=== PATIENT | female | born 1985 | race Caucasian/White ===

== ENCOUNTER → 2018-11-07 | Outpatient (CLI) | payer OTHER ==
[~2018-11-07] MED LIST: FERROUS SULFATE; FLOM0.4C39 PO; IBUP600T; IBUP800T; IBUP80TA PO; IRON28TA; LEVA750T7 PO; MACR100C43 PO; MOM30SS PO; ZOFR4TAB16 PO; prenatal vit
--- NOTE | 2018-11-07 13:10 | REP ---
KUB ABDOMEN AND PELVIS: KUB film of abdomen and pelvis demonstrates no evidence of bowel obstruction. No dilated small bowel loops are seen. No abnormal calcifications are seen radiographically. The visualized osseous structures are unremarkable. IMPRESSION: Negative exam. Electronically Signed by Frank Arguello MD 11/07/2018 04:50 P
[2018-11-07 20:24] LABS: BASO # 0.1 10^3/uL (0.0-0.2); BASO % 0.4 % (0.0-1.0); EOS % 0.1 % (0.0-3.0); HEMATOCRIT 47.1 % (36.0-47.0); HEMOGLOBIN 15.3 g/dl (12.0-15.5); LYMPH # 0.6 10^3/uL (1.5-5.0); LYMPH % 4.5 % (24.0-44.0); MEAN CORPUSCULAR HEMOGLOBIN 32.6 pg (27.0-33.0); MEAN CORPUSCULAR HGB CONC 32.5 g/dl (32.0-36.5); MEAN CORPUSCULAR VOLUME 100.2 fl (80.0-96.0); MONO # 0.9 10^3/uL (0.0-0.8); MONO % 6.6 % (0.0-5.0); NEUTROPHILS # 11.9 10^3/uL (1.5-8.5); NEUTROPHILS % 87.8 % (36.0-66.0); PLATELET COUNT, AUTOMATED 187 10^3/uL (150-450); WHITE BLOOD COUNT 13.6 10^3/uL (4.0-10.0)
[2018-11-07 20:30] LABS: ALBUMIN 3.8 GM/DL (3.2-5.2); ALT/SGPT 52 U/L (12-78); AMYLASE 25 U/L (25-115); BILIRUBIN,TOTAL 1.1 MG/DL (0.2-1.0); BLOOD UREA NITROGEN 11 MG/DL (7-18); CALCIUM LEVEL 9.1 MG/DL (8.5-10.1); CARBON DIOXIDE LEVEL 27 MEQ/L (21-32); CHLORIDE LEVEL 105 MEQ/L (98-107); CREATININE FOR GFR 0.98 MG/DL (0.55-1.30); GLOMERULAR FILTRATION RATE > 60.0 (>60); GLUCOSE, FASTING 129 MG/DL (70-100); POTASSIUM SERUM 4.3 MEQ/L (3.5-5.1); SODIUM LEVEL 138 MEQ/L (136-145)
[2018-11-09 06:51] LABS: LIPASE 79 U/L (73-393)
== END ==
LOC: M WUC 11:06
PROVIDERS: ATTEND Physician Assistant
DX: R10.813 Right lower quadrant abdominal tenderness (principal); M54.5 Low back pain

== ENCOUNTER → 2018-11-07 | Outpatient (REF) | payer OTHER | LOC: M LAB REF 13:39 | PROVIDERS: ATTEND Physician Assistant | DX: R10.813 Right lower quadrant abdominal tenderness (principal); M54.5 Low back pain ==

== ENCOUNTER 2018-11-10 06:13 | Emergency (ER) | payer OTHER ==
[~2018-11-10] VITALS: Ht 172.7 cm; Wt 63.6 kg
[~2018-11-10 06:13] MED LIST changes: -FLOM0.4C39 PO; -LEVA750T7 PO; -MACR100C43 PO; -ZOFR4TAB16 PO
[2018-11-10] MEDS ORDERED: FLOM0.4C39 PO (06:35)
[2018-11-10] MEDS ORDERED: MACR100C43 PO (06:35)
[2018-11-10] MEDS ORDERED: ZOFR4TAB16 PO (06:35)
[2018-11-10 07:00] LABS: HEMATOCRIT 39.2 % (36.0-47.0); HEMOGLOBIN 13.6 g/dl (12.0-15.5); MEAN CORPUSCULAR HEMOGLOBIN 32.9 pg (27.0-33.0); MEAN CORPUSCULAR HGB CONC 34.7 g/dl (32.0-36.5); MEAN CORPUSCULAR VOLUME 94.7 fl (80.0-96.0); PLATELET COUNT, AUTOMATED 165 10^3/uL (150-450); RED BLOOD COUNT 4.14 10^6/uL (4.00-5.40); WHITE BLOOD COUNT 14.6 10^3/uL (4.0-10.0)
[2018-11-10 07:19] LABS: CALCIUM LEVEL 8.4 MG/DL (8.5-10.1); CREATININE FOR GFR 1.79 MG/DL (0.55-1.30); GLOMERULAR FILTRATION RATE 34.7 (>60); POTASSIUM SERUM 3.2 MEQ/L (3.5-5.1)
[2018-11-10 07:20] LABS: LYMPHOCYTES 3 % (16-44); MONOCYTES 1 % (0-5); NEUTROPHILS 96 % (28-66); PLATELET ESTIMATE NORMAL (NORMAL)
[2018-11-10] MEDS ORDERED: cefTRIAXone SOD 1 GM in D5W MINI-BAG PLUS 50 ML IV ONE (07:45)
[2018-11-10] MEDS ORDERED: NS 1,000 ML IV ONE ×2 (07:45→08:45)
--- NOTE | 2018-11-10 08:33 | REP ---
Clinical: Right flank pain. Technique: Axial noncontrast images from the lung bases to the pubic symphysis with coronal and sagittal re-formations. Findings: The liver and spleen appear enlarged suggesting hepatosplenomegaly. The gallbladder demonstrates layering sludge without evidence for acute cholecystitis. The the pancreas and bilateral adrenal glands are normal. The kidneys are without hydroureteronephrosis or nephroureterolithiasis. There is mild stranding noted in the right mid to lower abdomen primarily identified at the level of the Morison's pouch and inferior to the right kidney with subtle extension to the right lower quadrant. These findings are nonspecific and may be secondary to pyelonephritis or an occult right lower quadrant process. The enteric system is limited in evaluation due to lack of contrast although there is no evidence for obstruction or definite acute inflammatory process. The appendix is not definitively identified. Evaluation of the pelvis demonstrates collapsed bladder with age-appropriate uterus/adnexa. A 1 mm calcification is identified in the deep right hemipelvis (image 123) of uncertain etiology which likely represents phlebolith although small distal ureteral calculus cannot definitively be excluded. No ascites. No significant adenopathy. No free air. Abdominal aorta without aneurysm. Impression: Mild nonspecific inflammatory stranding in the right mid to lower abdomen and right lower quadrant. No further definite acute process is appreciated. Close clinical observation is recommended along with urinalysis to evaluate for the possibility of pyelonephritis or very subtle nonobstructing distal right ureteral calculus as mentioned above. Electronically Signed by Bay Camejo MD 11/10/2018 08:25 A
[2018-11-10] MEDS ORDERED: MORPHINE 2 MG/ML 1ML SYRINGE (J2270) IV ONE (11:30)
[2018-11-10] MEDS ORDERED: LEVA750T7 PO (12:31)
[2018-11-10 12:43] VITALS: BP 105/61
== END 2018-11-10 13:02 | disposition home or self-care (01) ==
LOC: M ED 06:13
DX: N10 Acute pyelonephritis (principal); Z79.899 Other long term (current) drug therapy
CPT/HCPCS: 36415; 74176; 80048; 81001; 83605; 84702; 85025; 87040; 87088; 87186; 96361; 96365; 96366; 96375; 99285; J0696; J2270

== ENCOUNTER → 2019-08-02 | Outpatient (CLI) | payer OTHER ==
[~2019-08-02] MED LIST changes: +FLOM0.4C39 PO; +LEVA750T7 PO; +MACR100C43 PO; +ZOFR4TAB16 PO
--- NOTE | 2019-08-02 18:24 | REP ---
Clinical: Contusion. Technique: AP, lateral, bilateral oblique views of the left fifth toe. Findings: Acute transverse nondisplaced fracture through the proximal phalanx with overlying soft tissue swelling noted. Impression: Acute nondisplaced transverse fracture through the proximal phalanx. Electronically Signed by Bay Camejo MD 08/02/2019 06:16 P
== END ==
LOC: M WUC 14:10
PROVIDERS: ATTEND Physician Assistant
DX: S92.515A Nondisplaced fracture of proximal phalanx of left lesser toe(s), initial encounter for closed fracture (principal); X58.XXXA Exposure to other specified factors, initial encounter; Y92.9 Unspecified place or not applicable

== ENCOUNTER → 2022-02-02 | Outpatient (CLI) | payer OTHER | LOC: M WHC 13:00 | PROVIDERS: ATTEND Advanced Practice Midwife | DX: R92.8 Other abnormal and inconclusive findings on diagnostic imaging of breast (principal); N63.24 Unspecified lump in the left breast, lower inner quadrant; N63.21 Unspecified lump in the left breast, upper outer quadrant ==

== ENCOUNTER → 2023-07-13 | Outpatient (REF) | payer OTHER ==
[2023-07-13 15:32] LABS: BASO # 0.1 10^3/uL (0.0-0.2); BASO % 1.1 % (0.0-1.0); EOS # 0.1 10^3/uL (0.0-0.5); HEMATOCRIT 41.7 % (36.0-47.0); HEMOGLOBIN 13.7 g/dl (12.0-15.5); LYMPH # 0.7 10^3/uL (1.5-5.0); LYMPH % 15.1 % (24.0-44.0); MEAN CORPUSCULAR HEMOGLOBIN 32.5 pg (27.0-33.0); MEAN CORPUSCULAR HGB CONC 32.9 g/dl (32.0-36.5); MEAN CORPUSCULAR VOLUME 98.8 fl (80.0-96.0); MONO # 0.6 10^3/uL (0.0-0.8); MONO % 12.4 % (2.0-8.0); NEUTROPHILS # 3.1 10^3/uL (1.5-8.5); NEUTROPHILS % 68.7 % (36.0-66.0); PLATELET COUNT, AUTOMATED 212 10^3/uL (150-450); RED BLOOD COUNT 4.22 10^6/uL (4.00-5.40); WHITE BLOOD COUNT 4.5 10^3/uL (4.0-10.0)
[2023-07-13 15:45] LABS: HEMOGLOBIN A1c 4.8 % (4.0-6.0)
[2023-07-13 16:01] LABS: THYROID STIMULATING HORMONE 1.413 uIU/ML (0.55-4.78)
[2023-07-13 16:04] LABS: ALBUMIN 3.2 G/DL (3.2-5.2); ALKALINE PHOSPHATASE 40 U/L (46-116); ALT/SGPT 36 U/L (7.0-40); AST/SGOT 33 U/L (<34); BILIRUBIN,TOTAL 0.5 MG/DL (0.3-1.2); BLOOD UREA NITROGEN 10 MG/DL (9-23); CALCIUM LEVEL 8.4 MG/DL (8.5-10.1); CARBON DIOXIDE LEVEL 24 MMOL/L (20-31); CHLORIDE LEVEL 108 MMOL/L (98-107); CHOLESTEROL LEVEL 179 MG/DL (<200); CHOLESTEROL RISK RATIO 2.14 (<5); CREATININE FOR GFR 0.73 MG/DL (0.55-1.30); GLOMERULAR FILTRATION RATE > 60.0 (>60); GLUCOSE, FASTING 105 MG/DL (60-100); HDL CHOLESTEROL 83.3 MG/DL (>40); LDL CHOLESTEROL 85.1 MG/DL (<100); NON-HDL-C 95.7 MG/DL; POTASSIUM SERUM 4.5 MMOL/L (3.5-5.1); SODIUM LEVEL 136 MMOL/L (136-145); TOTAL PROTEIN 6.3 G/DL (5.7-8.2); TRIGLYCERIDES LEVEL 53 MG/DL (<150)
== END ==
LOC: M LAB REF 12:59
PROVIDERS: ATTEND Nurse Practitioner Family
DX: Z13.1 Encounter for screening for diabetes mellitus (principal); Z13.220 Encounter for screening for lipoid disorders; Z13.29 Encounter for screening for other suspected endocrine disorder; R20.2 Paresthesia of skin; E55.9 Vitamin D deficiency, unspecified

== ENCOUNTER → 2024-03-16 | Outpatient (CLI) | payer OTHER | LOC: M WUC 15:04 | PROVIDERS: ATTEND Physician Assistant | DX: S60.131A Contusion of right middle finger with damage to nail, initial encounter (principal); Y93.9 Activity, unspecified; Y92.9 Unspecified place or not applicable ==

== ENCOUNTER → 2024-07-11 | Outpatient (CLI) | payer OTHER ==
[~2024-07-11] MED LIST changes: -FLOM0.4C39 PO; +TAMS-18 PO
== END ==
LOC: M WUC 13:49
PROVIDERS: ATTEND Nurse Practitioner Family
DX: M79.641 Pain in right hand (principal); W01.10XA Fall on same level from slipping, tripping and stumbling with subsequent striking against unspecified object, initial encounter